=== PATIENT | male | born 2000 | race African-American/Black ===

== ENCOUNTER 2022-09-13 11:29 | Emergency (ER) | payer MEDICAID ==
[~2022-09-13] VITALS: Ht 172.7 cm; Wt 75.0 kg
[2022-09-13] MEDS ORDERED: IBUPROFEN 600MG TABLET PO ONE (12:30)
[2022-09-13] MEDS ORDERED: NAP5EC MT (12:31)
[2022-09-13 13:04] VITALS: BP 127/75
== END 2022-09-13 13:05 | disposition home or self-care (01) ==
LOC: ER 11:44
DX: M54.50 Low back pain, unspecified (principal); V43.52XA Car driver injured in collision with other type car in traffic accident, initial encounter; Y93.89 Activity, other specified; Y92.410 Unspecified street and highway as the place of occurrence of the external cause
CPT/HCPCS: 99282